=== PATIENT | female | born 1995 | race Caucasian/White ===

== ENCOUNTER 2016-03-10 18:25 | Emergency (ER) | payer OTHER ==
[2016-03-10] MEDS ORDERED: ACETAMINOPHEN 325 MG TABLET PO ONE (19:13)
--- NOTE | 2016-03-10 19:16 | ER Document Report ---
ED Medical Screen (RME) - General Chief Complaint: Abdominal Pain Stated Complaint: VAGINAL BLEEDING Time seen by provider: 19:14 Mode of Arrival: Ambulatory Information source: Patient Notes: 21 yo female continues to bleed with pelvic cramping. [facility] told her that she is having miscarriage. Bleeding less than earlier today. TRAVEL OUTSIDE OF THE [place] IN LAST 30 DAYS: No - Related Data Allergies/Adverse Reactions: Penicillins Allergy (Verified 03/10/16 19:08) Past Medical History - Social History Chew tobacco use (# tins/day): No Frequency of alcohol use: None Drug Abuse: None Physical Exam - Vital signs Vitals: Temp Pulse Resp BP Pulse Ox 98.2 F 101 H 17 137/73 H 100 03/10/16 18:33 03/10/16 18:33 03/10/16 18:33 03/10/16 18:33 03/10/16 18:33 Course - Vital Signs Vital signs: Temp Pulse Resp BP Pulse Ox 98.2 F 101 H 17 137/73 H 100 03/10/16 18:33 03/10/16 18:33 03/10/16 18:33 03/10/16 18:33 03/10/16 18:33
[2016-03-10 19:56] LABS: ABSOLUTE BASOPHILS # (AUTO) 0.1 10^3/uL (0.0-0.2); ABSOLUTE EOSINOPHILS # (AUTO) 0.3 10^3/uL (0.0-0.6); ABSOLUTE MONOCYTES (AUTO) 0.6 10^3/uL (0.1-1.4); ABSOLUTE NEUT (AUTO) 5.8 10^3/uL (1.7-8.2); BASOPHILS % (AUTO) 0.8 % (0-2); EOSINOPHILS % (AUTO) 2.6 % (0-6); HEMATOCRIT 36.2 % (36.0-47.0); HEMOGLOBIN 12.5 g/dL (12.0-15.5); HGB HCT DIFFERENCE 1.3; LYMPHOCYTES % (AUTO) 30.8 % (13-45); MEAN CORPUSCULAR HEMOGLOBIN 29.5 pg (27.0-33.4); MEAN CORPUSCULAR HGB CONC 34.5 g/dL (32.0-36.0); MEAN CORPUSCULAR VOLUME 86 fl (80-97); MONOCYTES % (AUTO) 6.6 % (3-13); RED BLOOD COUNT 4.23 10^6/uL (3.72-5.28); RED CELL DISTRIBUTION WIDTH 13.6 % (11.5-14.0); SEGMENTED NEUTROPHILS % (AUTO) 59.2 % (42-78); WHITE BLOOD COUNT 9.8 10^3/uL (4.0-10.5)
[2016-03-10] MEDS ORDERED: KETOROLAC TROMETHAMINE 60 MG/2 ML SDV IM ONE (20:36)
[2016-03-10] MEDS ORDERED: HYDROCODONE/ACETAMINOPHEN 5-325 MG 6 TAB/DSPK PO PRN (20:45)
[2016-03-10] MEDS ORDERED: MISOPROSTOL 0.2 MG TABLET PO ONE (20:45)
[2016-03-10] MEDS ORDERED: ONDANSETRON ODT 4 MG TAB (6 TAB/DSPK) PO PRN (20:49)
--- NOTE | 2016-03-10 20:49 | ER Document Report ---
ED General - General Chief Complaint: Abdominal Pain Stated Complaint: VAGINAL BLEEDING Mode of Arrival: Ambulatory Notes: Patient is a 21-year-old female 011 at approximately 6 weeks gestation who presents with inability to pass her fetus at home. Patient was diagnosed as having a missed one week ago and has been trying expectant management at home with associated vaginal bleeding but no passage of material. She states that she has been bleeding through approximately one pad per hour but that this has slowed in the last 5-6 hours. She contacted the on- call nurse line for women's clinic who encouraged her to come to the emergency department for further assessment. She notes a mild, constant, dull cramping lower abdominal pain. Nothing improves or worsens this pain. She has no history of similar symptoms in the past. She denies any associated fever, vaginal discharge, or constitutional symptoms. TRAVEL OUTSIDE OF THE [place] IN LAST 30 DAYS: No - Related Data Allergies/Adverse Reactions: Penicillins Allergy (Verified 03/10/16 19:08) Past Medical History - General Information source: Patient Last Menstrual Period: unsure - Social History Smoking Status: Never Smoker Chew tobacco use (# tins/day): No Frequency of alcohol use: None Drug Abuse: None Lives with: Spouse/Significant other Family History: Reviewed & Not Pertinent Patient has suicidal ideation: No Patient has homicidal ideation: No Review of Systems - Review of Systems Notes: Constitutional: Negative for fever. HENT: Negative for sore throat. Eyes: Negative for visual changes. Cardiovascular: Negative for chest pain. Respiratory: Negative for shortness of breath. Gastrointestinal: Positive for abdominal pain, negative for vomiting or diarrhea. Genitourinary: Negative for dysuria. Positive for vaginal bleeding Musculoskeletal: Negative for back pain. Skin: Negative for rash. Neurological: Negative for headaches, weakness or numbness. 10 point ROS negative except as marked above and in HPI. Physical Exam - Vital signs Vitals: Temp Pulse Resp BP Pulse Ox 98.2 F 101 H 17 137/73 H 100 03/10/16 18:33 03/10/16 18:33 03/10/16 18:33 03/10/16 18:33 03/10/16 18:33 Interpretation: Tachycardic Notes: PHYSICAL EXAMINATION: GENERAL: Well-appearing, well-nourished and in no acute distress. HEAD: Atraumatic, normocephalic. EYES: Pupils equal round and reactive to light, extraocular movements intact, sclera anicteric, conjunctiva are normal. ENT: nares patent, oropharynx clear without exudates. Moist mucous membranes. NECK: Normal range of motion, supple without lymphadenopathy LUNGS: Breath sounds clear to auscultation bilaterally and equal. No wheezes rales or rhonchi. HEART: Regular rate and rhythm without murmurs ABDOMEN: Soft, nontender, normoactive bowel sounds. No guarding, no rebound. No masses appreciated. EXTREMITIES: Normal range of motion, no pitting or edema. No cyanosis. NEUROLOGICAL: No focal neurological deficits. Moves all extremities spontaneously and on command. PSYCH: Normal mood, normal affect. SKIN: Warm, Dry, normal turgor, no rashes or lesions noted. Course - Re-evaluation Re-evalutation: 03/11/16 03:40 Patient presents with a missed confirmed on ultrasound. Minimal bleeding at this time. She has received RhoGAM on a prior visit. No significant anemia on lab work. Vitals are otherwise within normal limits. Patient is in no acute distress. I discussed this case with the on-call OB/ DEPARTMENT CLINICIAN. Dr. Perez has recommended the patient follow-up in clinic tomorrow morning. We'll also try me Cytotec therapy for medical expulsion. At this time will discharge with return precautions and follow-up recommendations. Verbal discharge instructions given a the bedside and opportunity for questions given. Medication warnings reviewed. Patient is in agreement with this plan and has verbalized understanding of return precautions and the need for OB follow up in the morning. - Vital Signs Vital signs: Temp Pulse Resp BP Pulse Ox 98.5 F 94 17 137/72 H 98 03/10/16 21:07 03/10/16 21:07 03/10/16 18:33 03/10/16 21:07 03/10/16 21:07 - Laboratory Result Diagrams: 03/10/16 19:43 Laboratory results interpreted by me: 03/10/16 19:43 Beta HCG, Quant 22469.00 H - Diagnostic Test Radiology reviewed: Reports reviewed Discharge - Discharge Clinical Impression: Missed Condition: Good Disposition: HOME, SELF-CARE Additional Instructions: You are being sent home with a trial of medical therapy to induce passage of the fetus. Please leave this in your gumline as long as you are able and then swallow the remainder of the pills. You can take the Cliff that you were sent home with 1-2 tabs every 4 hours as needed for severe abdominal pain. You do need to still contact the women's clinic in the morning for a urgent follow-up. Return to the emergency department if you develop a fever greater than 100.4F , persistent vomiting, severe pain, or any other symptoms that are of concern to you.
[2016-03-10] MEDS ORDERED: MISOPROSTOL 0.2 MG TABLET ONE ×2 (21:05→21:20)
[2016-03-10 21:08] VITALS: BP 137/72
== END 2016-03-10 21:30 | disposition home or self-care (01) ==
LOC: ER 18:25
DX: O02.1 Missed abortion (principal); R10.9 Unspecified abdominal pain; Z3A.01 Less than 8 weeks gestation of pregnancy
CPT/HCPCS: 99284; 86900; 86901; 36415; 84702; 85025; 76817; J1885

== ENCOUNTER 2016-03-11 10:09 | Day surgery (SDC) | payer OTHER ==
[2016-03-11] MEDS ORDERED: CEFAZOLIN 2 GM/D5W RTU 2 GM/50 ML RTUPB IV SCH ×2 (12:00→12:30)
[2016-03-11 12:15] LABS: HEMATOCRIT 35.1 % (36.0-47.0); HEMOGLOBIN 12.1 g/dL (12.0-15.5); HGB HCT DIFFERENCE 1.2; MEAN CORPUSCULAR HEMOGLOBIN 29.6 pg (27.0-33.4); MEAN CORPUSCULAR HGB CONC 34.3 g/dL (32.0-36.0); MEAN CORPUSCULAR VOLUME 86 fl (80-97); RED BLOOD COUNT 4.08 10^6/uL (3.72-5.28); RED CELL DISTRIBUTION WIDTH 13.7 % (11.5-14.0); WHITE BLOOD COUNT 12.1 10^3/uL (4.0-10.5)
[2016-03-11] MEDS ORDERED: CEFAZOLIN 2 GM/D5W RTU 2 GM/50 ML RTUPB IV ONE (12:15)
[2016-03-11] MEDS ORDERED: HYDROMORPHONE HCL INJ/PF 2 MG/ML AMPULE IV ONE (12:45)
[2016-03-11] MEDS ORDERED: ONDANSETRON HCL INJ/PF 4 MG/2 ML SDV ONE (13:25)
[2016-03-11] MEDS ORDERED: ACETAMINOPHEN 100 ML IV ONE (13:25)
[2016-03-11] MEDS ORDERED: FENTANYL CITRATE INJ/PF 100 MCG/2 ML AMPUL ONE (13:25)
[2016-03-11] MEDS ORDERED: MIDAZOLAM 2 MG/2 ML INJ ONE (13:25)
[2016-03-11] MEDS ORDERED: PROPOFOL INJ 200 MG/20 ML VIAL IV ONE (13:25)
[2016-03-11] MEDS ORDERED: MEPERIDINE HCL/PF INJ 25 MG/1 ML DISP.SYRIN IV PRN (13:56)
[2016-03-11] MEDS ORDERED: MORPHINE SULFATE 10 MG/ML INJ IV PRN (13:56)
[2016-03-11] MEDS ORDERED: PROMETHAZINE HCL INJ 25 MG/1 ML VIAL IV PRN ×2 (13:56)
--- NOTE | 2016-03-11 14:10 | Operative Report ---
Operative Report DATE OF SURGERY: 03/11/16 PREOPERATIVE DIAGNOSIS: Incomplete AB POSTOPERATIVE DIAGNOSIS: Same OPERATION: Suction D&C SURGEON: PAMELA CABA ANESTHESIA: GA TISSUE REMOVED OR ALTERED: Uterine contents COMPLICATIONS: None ESTIMATED BLOOD LOSS: 10 mL INTRAOPERATIVE FINDINGS: Uterine sound to 7 cm before and after the case PROCEDURE: Patient was taken to the OR and placed in supine position. Anesthesia was induced. She is placed in dorsolithotomy position using Eduard stirrups. Perineum and vagina were prepared and draped in sterile fashion. Weighted speculum was placed. Anterior lip cervix was grasped with a tenaculum. The uterus was sounded gently dilated. A size 8 suction curette was used to remove the uterine contents. Gentle sharp curettage at the end of the case revealed no retained products. Second sound was performed all instruments were then removed. She's placed back in supine position and taken recovery room stable condition.
[2016-03-11] MEDS: HYDROMORPHONE HCL INJ/PF 2 MG/ML AMPULE ONE ×4 (14:26→14:56)
[2016-03-11] MEDS ORDERED: OXYCODONE-ACETAMINOPHEN 5-325 MG TABLET PO PRN (14:30)
[2016-03-11] MEDS ORDERED: INFLUENZA ADLT QUAD (36MOS+) 2016-17 VAC 0.5 ML SYR IM PRN (16:41)
[2016-03-11] MEDS: FENTANYL CITRATE INJ/PF 100 MCG/2 ML AMPUL IV PRN ×6 (16:50→16:57)
[2016-03-11] MEDS: DIPHENHYDRAMINE HCL 50 MG/ML VIAL IV PRN ×2 (16:50→16:57)
[2016-03-11] MEDS: RINGERS SOLUTION,LACTATED 1,000 ML IV PRN ×2 (16:50→16:57)
[2016-03-11 17:01] VITALS: BP 133/71
--- NOTE | 2016-03-12 04:47 | L&D Admission Assessment ---
LD ADM ASMT Datetime Report Generated by CPN: 03/12/2016 04:45 WEIGHT Weight (lb): 189 (03/11/2016 12:38:QS system process) Weight (kg): 85.9 (03/11/2016 12:38:QS system process)
--- NOTE | 2016-03-12 04:47 | L&D General Admission ---
General Admit Datetime Report Generated by CPN: 03/12/2016 04:45 INFORMATION Patient Age: 21 (03/11/2016 10:09:QS system process) CARE Height (in): 69 (03/11/2016 12:38:QS system process) ALLERGIES Medication Allergies: Penicillins (03/10/2016) (03/11/2016 10:09:QS system process) DEMOGRAPHICS Address: [address] [place] [id number] (03/11/2016 10:09:QS system process) Zipcode: [id number] (03/11/2016 10:09:QS system process) Home (03/11/2016 10:09:QS system process) SSN: [id number] (03/11/2016 10:09:QS system process) Next of Kin Name: KELSEY STYLES (03/11/2016 10:09:QS system process) Next of Kin (03/11/2016 10:09:QS system process) Next of Kin Relationship: SPO (03/11/2016 10:09:QS system process) Date of : 1995 (03/11/2016 10:09:QS system process) Marital Status: (03/11/2016 10:09:QS system process) Sex: Female (03/11/2016 10:09:QS system process) Race: (03/11/2016 10:09:QS system process) Ethnicity: Non- or (03/11/2016 10:09:QS system process) Yazidi: None (03/11/2016 10:09:QS system process) LABS Hemoglobin: 12.1 (03/11/2016 11:42:QS system process) Hematocrit: 35.1 L (03/11/2016 11:42:QS system process) MCV: 86 (03/11/2016 11:42:QS system process)
== END 2016-03-11 18:20 | disposition home or self-care (01) ==
LOC: OROUT 10:09 → 2S 10:09 → UNDOADMIN 10:09 → EDSTATUS 11:52 → OROUT 18:20
PROVIDERS: ATTEND Specialist
PROC: 3E0234Z Introduction of Serum, Toxoid and Vaccine into Muscle, Percutaneous Approach (ICD-10-PCS; 2016-03-11)
PROC: 10D17ZZ Extraction of Products of Conception, Retained, Via Natural or Artificial Opening (ICD-10-PCS; principal; 2016-03-11 13:00)
DX: O03.4 Incomplete spontaneous abortion without complication (principal); Z23 Encounter for immunization; I10 Essential (primary) hypertension; Z88.0 Allergy status to penicillin
CPT/HCPCS: 86900; 86901; 36415; 86870; 86850; 85027; 88305 ×2; 90686; 59812; J2250; J3010; J1170; J2405; J2704; J0690; J0131; 1965

== ENCOUNTER 2017-04-18 23:54 | Outpatient (CLI) | payer OTHER ==
[2017-04-19 00:42] LABS: APPEARANCE,URINE CLEAR; BILIRUBIN,URINE NEGATIVE (NEGATIVE); COLOR,URINE YELLOW; GLUCOSE, URINE >=500 mg/dL (NEGATIVE); KETONES,URINE TRACE mg/dL (NEGATIVE); LEUKOCYTE ESTERASE,URINE LARGE (NEGATIVE); NITRITE,URINE NEGATIVE (NEGATIVE); PROTEIN,URINE NEGATIVE (NEGATIVE); URINE SPECIFIC GRAVITY 1.009; UROBILINOGEN,URINE NEGATIVE mg/dL (<2.0)
[2017-04-19 01:26] LABS: URINE AMPHETAMINES SCREEN NEGATIVE; URINE BARBITURATES SCREEN NEGATIVE; URINE BENZODIAZEPINES SCREEN NEGATIVE; URINE COCAINE SCREEN NEGATIVE; URINE MARIJUANA (THC) SCREEN NEGATIVE; URINE METHADONE SCREEN NEGATIVE; URINE PHENCYCLIDINE SCREEN NEGATIVE
== END 2017-04-19 01:54 | disposition home or self-care (01) ==
LOC: LC 23:54
PROVIDERS: ATTEND Student in an Organized Health Care Education/Training Program
PROC: 4A1HXCZ Monitoring of Products of Conception, Cardiac Rate, External Approach (ICD-10-PCS; principal; 2017-04-18)
DX: O47.03 False labor before 37 completed weeks of gestation, third trimester (principal); Z3A.34 34 weeks gestation of pregnancy
CPT/HCPCS: 59025; 80307; 81001